=== PATIENT | female | born 1940 | race Two or more races ===

== ENCOUNTER 2021-04-26 00:20 | Emergency (ER) | payer OTHER ==
[~2021-04-26] VITALS: Ht 127 cm; Wt 59.0 kg
[2021-04-26] MEDS ORDERED: LEVOTHYROXINE25 MCG PO (00:46)
[2021-04-26] MEDS ORDERED: COZAAR25 MG PO (00:46)
[2021-04-26] MEDS ORDERED: ZYNCOF 20-400120 ML PO (04:40)
== END 2021-04-26 05:03 ==
LOC: ER 00:20
DX: R05.9 Cough, unspecified (principal)